=== PATIENT | female | born 1995 | race Two or more races ===

== ENCOUNTER 2019-10-26 14:22 | Emergency (ER) | payer OTHER ==
--- NOTE | 2019-10-26 15:03 | CR ---
EXAMINATION: Shoulder Comp Lt (3 views) SEX: Female AGE: 24 years CLINICAL HISTORY: 24-year-old female PAIN left shoulder. INTERPRETATION: 1. Homogeneous normal bone mineral density for age and gender. (Gown snap artifacts) 2. Normal spacing between the acromion process scapula and the head of the humerus. No juxta-articular rotator cuff tendon calcifications. 3. No pathologic skeletal lesion. 4. No fracture, acromioclavicular separation or glenohumeral dislocation. 5. Underlying ribs upper left hemithorax unremarkable. If lung apex clear. CONCLUSION: Negative plain film exam left shoulder.
--- NOTE | 2019-10-26 15:38 | EDM.PDOC ---
ED HPI GENERAL MEDICAL PROBLEM - General Chief Complaint: Upper Extremity Injury/Pain Stated Complaint: FELL ON A CALL, LEFT SHOULDER TO BE CHECKED Time Seen by Provider: 10/26/19 14:40 Source of Information: Reports: Patient, RN, RN Notes Reviewed History Limitations: Reports: No Limitations - History of Present Illness INITIAL COMMENTS - FREE TEXT/NARRATIVE: A 24-year-old female who reports slipping on ice and fell on an outstretched hands x2 hours ago. She reports hearing a clicking sound in her left shoulder. Reports mild ache and rates pain 3/10. No other symptoms reported. Has been able to use her arm. Onset: Today Duration: Constant Location: Reports: Upper Extremity, Left Quality: Reports: Ache Severity: Mild Improves with: Reports: None Worsens with: Reports: None Associated Symptoms: Reports: No Other Symptoms Past Medical History - Past Health History Medical/Surgical History: Denies Medical/Surgical History Social & Family History - Family History Family Medical History: Noncontributory - Tobacco Use Smoking Status *Q: Never Smoker - Caffeine Use Caffeine Use: Reports: None - Recreational Drug Use Recreational Drug Use: No Review of Systems - Review of Systems Review Of Systems: Comprehensive ROS is negative, except as noted in HPI. ED EXAM, GENERAL - Physical Exam Exam: See Below Exam Limited By: No Limitations General Appearance: Alert, WD/WN, No Apparent Distress Extremities: Normal Inspection, Normal Range of Motion, Normal Capillary Refill , Other (tenderness reported with palpation of the trapezius muscle.) Course - Vital Signs Last Recorded V/S: Last Vital Signs Temp 98.3 F 10/26/19 14:34 Pulse 87 10/26/19 14:34 Resp 14 10/26/19 14:34 BP 135/82 10/26/19 14:34 Pulse Ox 100 10/26/19 14:34 - Radiology Interpretation Free Text/Narrative:: X-ray left shoulder normal. See rad report. - Re-Assessments/Exams Free Text/Narrative Re-Assessment/Exam: 10/26/19 15:46 Exam benign with the exception of muscle spasms on the left trapezius with palpation. Encourage range of motion. RX for Flexeril at bedtime sent with patient. Follow up with PCP if not feeling better in a week. Departure - Departure Time of Disposition: 15:33 Disposition: Home, Self-Care 01 Condition: Good Clinical Impression: Shoulder injury Qualifiers: Encounter type: initial encounter Laterality: right Qualified Code(s): S49.91XA - Unspecified injury of right shoulder and upper arm, initial encounter Fall Qualifiers: Encounter type: initial encounter Qualified Code(s): W19.XXXA - Unspecified fall, initial encounter - Discharge Information Instructions: Shoulder Pain, [id number] Forms: ED Department Discharge Additional Instructions: Apply ice/heat every 15 minutes/hour. Tylenol prn for pain. Encouraged shoulder range of motion. Follow up with PCP in the clinic. Sepsis Event Note - Evaluation Sepsis Screening Result: No Definite Risk - Focused Exam Vital Signs: Vital Signs Temp Pulse Resp BP Pulse Ox 10/26/19 14:34 98.3 F 87 14 135/82 100 Date Exam was Performed: 10/26/19 Time Exam was Performed: 15:42
== END 2019-10-26 15:45 | disposition home or self-care (01) ==
LOC: DL.ED 14:22
DX: S49.92XA Unspecified injury of left shoulder and upper arm, initial encounter (principal); W00.0XXA Fall on same level due to ice and snow, initial encounter; Y99.0 Civilian activity done for income or pay
CPT/HCPCS: 73030-LT; 99283-25

== ENCOUNTER 2023-09-14 01:53 | Inpatient (IN) | payer BC ==
[2023-09-14] MEDS ORDERED: Ondansetron 4 MG/2 ML SDV IVPUSH PRN (02:57)
[2023-09-14] MEDS ORDERED: hydrOXYzine HCl 25 MG Tab PO ONE (02:57)
[2023-09-14] MEDS ORDERED: Misoprostol 400 MCG (4 X 100 MCG TAB) RECTAL PRN ×2 (02:57→16:36)
[2023-09-14] MEDS ORDERED: Lactated Ringers 1,000 ML IV ONE (02:57)
[2023-09-14] MEDS ORDERED: Tranexamic Acid 1,000 MG in Sodium Chloride 0.9% 100 ML IV PRN ×2 (02:57→16:36)
[2023-09-14] MEDS ORDERED: Lidocaine 1% 30 ML SDV INJECT ONE (02:57)
[2023-09-14] MEDS ORDERED: Carboprost Tromethamine 250 MCG/1 ML Amp IM PRN ×2 (02:57→16:36)
[2023-09-14] MEDS ORDERED: fentaNYL 100 MCG/2 ML SDV IVPUSH PRN (02:57)
[2023-09-14] MEDS ORDERED: Acetaminophen 325 MG Tab PO PRN (02:57)
[2023-09-14] MEDS ORDERED: Methylergonovine 0.2 MG/1 ML Amp IM PRN (02:57)
[2023-09-14] MEDS ORDERED: Sodium Chloride 0.9% 10 ML Syringe FLUSH PRN ×2 (02:57→16:36)
[2023-09-14] MEDS ORDERED: Oxytocin/Normal Saline 30 UNIT/500 ML BAG IV SCH (03:00)
[2023-09-14] MEDS ORDERED: ePHEDrine 50 MG/ML SDV IVPUSH PRN ×2 (03:01→10:06)
[2023-09-14] MEDS ORDERED: Phenylephrine HCl In 0.9% NaCl 1 MG/10 ML Syringe IVPUSH PRN ×2 (03:01→10:06)
[2023-09-14] MEDS ORDERED: Ropivacaine 200 MG in Premix Bag 1 BAG EPIDUR SCH ×2 (03:15→10:15)
[2023-09-14 03:36] LABS: HEMATOCRIT 33.9 % (37.0-47.0); HEMOGLOBIN 11.3 g/dL (12.0-16.0); MEAN CORPUSCULAR HEMOGLOBIN 30.9 pg (27.0-34.0); MEAN CORPUSCULAR HGB CONC 33.3 g/dL (33.0-35.0); MEAN CORPUSCULAR VOLUME 92.6 fL (80-100); RED BLOOD CELL COUNT 3.66 10^6/uL (4.2-5.4); WHITE BLOOD CELL COUNT,WBC 10.5 10^3/uL (5.0-10.0)
[2023-09-14] MEDS ORDERED: Bupivacaine 0.25% 10 ML SDV ONE (09:40)
[2023-09-14] MEDS ORDERED: fentaNYL 100 MCG/2 ML SDV ONE (09:40)
[2023-09-14] MEDS ORDERED: Bupivacaine 0.25% 10 ML SDV NERVRT ONE (09:45)
[2023-09-14] MEDS ORDERED: fentaNYL 100 MCG/2 ML SDV EPIDUR ONE (09:45)
[2023-09-14] MEDS: Lactated Ringers 1,000 ML IV SCH ×2 (10:46→19:10)
[2023-09-14] MEDS ORDERED: Benzocaine/Menthol 20%-0.5% Spray 78 GM Cannister TOP PRN (16:36)
[2023-09-14] MEDS ORDERED: Witch Hazel Medicated Pads 100/Jar TOP PRN (16:36)
[2023-09-14] MEDS ORDERED: Hydrocortisone 2.5% Crm 30 GM Tube TOP PRN (16:36)
[2023-09-14] MEDS ORDERED: Simethicone 80 MG Tab.Chew PO PRN (16:36)
[2023-09-14] MEDS: Ibuprofen 800 MG Tab PO PRN (18:09)
[2023-09-14] MEDS: Docusate Sodium 100 MG Cap PO PRN (21:40)
[2023-09-14] MEDS: Acetaminophen 325 MG Tab PO PRN (21:40)
[2023-09-15] MEDS: Ibuprofen 800 MG Tab PO PRN ×2 (04:24→16:55)
[2023-09-15 06:42] LABS: HEMOGLOBIN 8.7 g/dL (12.0-16.0); MEAN CORPUSCULAR HEMOGLOBIN 30.4 pg (27.0-34.0); MEAN CORPUSCULAR HGB CONC 32.2 g/dL (33.0-35.0); MEAN CORPUSCULAR VOLUME 94.4 fL (80-100); RED BLOOD CELL COUNT 2.86 10^6/uL (4.2-5.4); WHITE BLOOD CELL COUNT,WBC 15.6 10^3/uL (5.0-10.0)
[2023-09-15] MEDS: Prenatal Multivitamin with Calcium/Folic Acid/Iron Tab PO SCH (08:33)
[2023-09-15] MEDS: Acetaminophen 325 MG Tab PO PRN ×2 (08:33→21:36)
[2023-09-15] MEDS: Docusate Sodium 100 MG Cap PO PRN ×2 (08:33→21:38)
[2023-09-15] MEDS: Ferrous Sulfate 325 MG Tab PO SCH (08:33)
[2023-09-16] MEDS: Prenatal Multivitamin with Calcium/Folic Acid/Iron Tab PO SCH (09:02)
[2023-09-16] MEDS: Ibuprofen 800 MG Tab PO PRN (09:02)
[2023-09-16] MEDS: Ferrous Sulfate 325 MG Tab PO SCH (09:03)
[2023-09-16] MEDS: Docusate Sodium 100 MG Cap PO PRN (09:03)
== END 2023-09-16 10:40 | disposition home or self-care (01) | DRG 560 ==
LOC: DL.OBCHECK 01:53 → DL.OB 02:55 → OBSVTOIN 16:35 → DL.OB 16:35
PROVIDERS: ADMIT Family Medicine; ATTEND Family Medicine
PROC: 10907ZC Drainage of Amniotic Fluid, Therapeutic from Products of Conception, Via Natural or Artificial Opening (ICD-10-PCS; principal; 2023-09-14)
PROC: 10E0XZZ Delivery of Products of Conception, External Approach (ICD-10-PCS; principal; 2023-09-14)
PROC: 0KQM0ZZ Repair Perineum Muscle, Open Approach (ICD-10-PCS; principal; 2023-09-14)
PROC: 4A1HX4Z Monitoring of Products of Conception, Cardiac Electrical Activity, External Approach (ICD-10-PCS; principal; 2023-09-14)
PROC: 00HU33Z Insertion of Infusion Device into Spinal Canal, Percutaneous Approach (ICD-10-PCS; principal; 2023-09-14)
DX: O70.1 Second degree perineal laceration during delivery (principal); Z3A.39 39 weeks gestation of pregnancy; Z37.0 Single live birth
CPT/HCPCS: 01967; 36415; 51701; 51702; 59409; 85027; A9270-GY; C1729; J2405; J2590; J7120